=== PATIENT | female | born 1980 | race Caucasian/White ===

== ENCOUNTER 2017-04-10 02:59 | Emergency (ER) | payer MEDICAID ==
[~2017-04-10] VITALS: Ht 157.5 cm; Wt 45.9 kg
[2017-04-10] MEDS ORDERED: TRAM50TA2 PO (03:39)
[2017-04-10 04:02] VITALS: BP 142/85
== END 2017-04-10 04:06 | disposition home or self-care (01) ==
LOC: ER 03:00
DX: D17.21 Benign lipomatous neoplasm of skin and subcutaneous tissue of right arm (principal); Z56.0 Unemployment, unspecified; Z79.899 Other long term (current) drug therapy
CPT/HCPCS: 99283

== ENCOUNTER 2018-10-18 18:05 | Emergency (ER) | payer MEDICAID ==
[~2018-10-18] VITALS: Ht 157.5 cm; Wt 45.9 kg
[2018-10-18 18:08] VITALS: BP 129/83
[2018-10-18] MEDS ORDERED: ketorolac trometh inj. 60 MG/2 ML VIAL IM ONE (18:20)
[2018-10-18] MEDS ORDERED: dexamethasone sod phosphate 10mg/ml inj IM STA (18:20)
[2018-10-18] MEDS ORDERED: GABA300C PO (18:21)
== END 2018-10-18 18:34 | disposition home or self-care (01) ==
LOC: ER 18:06
DX: G62.9 Polyneuropathy, unspecified (principal); F32.9 Major depressive disorder, single episode, unspecified; Z98.890 Other specified postprocedural states; Z56.0 Unemployment, unspecified; Z79.899 Other long term (current) drug therapy
CPT/HCPCS: 96372; 99283; J1100; J1885

== ENCOUNTER 2019-05-07 14:19 | Emergency (ER) | payer MEDICAID ==
[~2019-05-07] VITALS: Ht 157.5 cm; Wt 50.8 kg
[~2019-05-07 14:19] MED LIST: GABA300C PO
[2019-05-07 14:39] VITALS: BP 120/35
[2019-05-07] MEDS ORDERED: proparacaine 0.5% ophthalmic drops 15ml EACHEYE ONE (15:05)
[2019-05-07] MEDS ORDERED: CIPR2.5D18 LEFTEYE (15:48)
== END 2019-05-07 16:11 | disposition home or self-care (01) ==
LOC: ER 14:23
DX: H16.002 Unspecified corneal ulcer, left eye (principal); Z56.0 Unemployment, unspecified; Z98.890 Other specified postprocedural states
CPT/HCPCS: 99283

== ENCOUNTER 2020-06-20 08:54 | Emergency (ER) | payer MEDICAID ==
[~2020-06-20] VITALS: Ht 167.6 cm; Wt 100.0 kg
[2020-06-20 09:10] VITALS: BP 125/86
== END 2020-06-20 09:41 | disposition home or self-care (01) ==
LOC: ER 08:55
DX: S06.0X0A Concussion without loss of consciousness, initial encounter (principal); F32.9 Major depressive disorder, single episode, unspecified; Z98.890 Other specified postprocedural states; Z56.0 Unemployment, unspecified; X58.XXXA Exposure to other specified factors, initial encounter; Y93.89 Activity, other specified; Y92.89 Other specified places as the place of occurrence of the external cause; Y99.8 Other external cause status
CPT/HCPCS: 99281

== ENCOUNTER → 2020-08-23 | Day surgery (SDC) | payer MEDICAID ==
[2020-08-17 10:15] LABS: CLARITY,URINE SLIGHTLY CLOUDY (Clear); COLOR,URINE YELLOW (Yellow); GLUCOSE, URINE NEGATIVE (Neg); KETONES,URINE NEGATIVE (Neg); LEUKOCYTE ESTERASE ,URINE TRACE (Neg); NITRITES, URINE NEGATIVE (Neg); OCCULT BLOOD,URINE NEGATIVE (Neg); PROTEIN,URINE NEGATIVE (Neg)
[2020-08-17 10:20] LABS: UA COLLECTION TYPE CLN CATCH MIDSTREAM
[2020-08-17 10:23] LABS: BASOPHILS # (AUTO) 0.1 X10'3 (0-0.2); EOSINOPHILS # (AUTO) 0.1 X10'3 (0-0.9); EOSINOPHILS % (AUTO) 1.3 % (0-6); LYMPHOCYTES # (AUTO) 1.4 X10'3 (1.1-4.8); MEAN PLATELET VOLUME 8.5 FL (7.4-10.4); PRE OP HEMOGLOBIN 13.6 g/dL (12.0-16.0); RED CELL DISTRIBUTION WIDTH 13.3 % (11.5-14.5)
[2020-08-17 10:25] LABS: BASOPHILS % (AUTO) 1.3 % (0-1); LYMPHOCYTES % (AUTO) 29.8 % (21-51); MEAN CORPUSCULAR HEMOGLOBIN 27.9 PG (27.0-31.0); MEAN CORPUSCULAR HGB CONC 33.6 g/dL (33.0-36.5); MONOCYTES # (AUTO) 0.5 X10'3 (0-0.9); MONOCYTES % (AUTO) 11.3 % (2-12); NEUTROPHILS # (AUTO) 2.7 X10'3 (1.8-7.7); NEUTROPHILS % (AUTO) 56.3 % (42-75); PRE OP HEMATOCRIT 40.5 % (35.0-45.0); PRE OP PLATELET COUNT 180 X10'3 (140-440); RED BLOOD COUNT 4.89 X10'6 (4.20-5.60)
[2020-08-17 10:26] LABS: BACTERIA,URINE 1+ /HPF (Neg); MUCUS STRANDS MANY /LPF (Neg); RBC,URINE 0-2 /HPF (0-2); SQUAMOUS EPITHELIAL CELL,UR MANY /LPF (FEW); YEAST FEW /HPF (NEGATIVE)
[2020-08-17 10:29] LABS: HCG SERUM QL NEGATIVE
[2020-08-17 10:42] LABS: ALBUMIN 3.8 G/DL (3.4-5.0); ALBUMIN/GLOBULIN RATIO 1.1 (1.1-1.5); ALKALINE PHOSPHATASE 57 IU/L (46-116); BLOOD UREA NITROGEN 12 MG/DL (7-18); BUN/CREATININE RATIO 15.4 (6.6-38.0); CALCIUM 8.7 MG/DL (8.5-10.1); CHLORIDE 106 MMOL/L (99-107); CREATININE 0.78 MG/DL (0.40-0.90); PRE OP ALT 16 U/L (30-65); PRE OP ANION GAP 9 (8-16); PRE OP AST 18 U/L (10-37); PRE OP BILIRUB, TOTAL 1.2 MG/DL (0.0-1.0); PRE OP GLUCOSE 89 MG/DL (70-104); PRE OP SODIUM 141 MMOL/L (135-145); TOTAL PROTEIN 7.3 G/DL (6.4-8.2); eGFR 82 ML/MIN
[2020-08-17 10:50] LABS: LARGE PLATELETS FEW; MICROCYTOSIS 1+; PLATELET ESTIMATE NORMAL
[2020-08-23] VITALS (11 sets, daily range): BP systolic 102–128; BP diastolic 64–82
[~2020-08-23] VITALS: Ht 157.5 cm; Wt 46.0 kg
[~2020-08-23] MED LIST changes: -GABA300C PO; +HYDROcodone/acetaminophen 5mg/325mg tablet PO ONE; +LIDOcaine 2% (20mg/ml) 5ml vial ONE; +NORE-126 PO; +ceFOXitin 2GM-NS 100mL ADDvant 100 ML IV ONE; +dexamethasone sod phosphate 4mg/ml inj. ONE; +famotidine 20mg tablet PO ONE; +fentaNYL/PF 50MCG/1 ML 2ML syringe ONE; +meperidine/PF 25mg/ml syringe IV PRN; +meperidine/PF 25mg/ml syringe ONE; +midazolam 1 mg/ML 2ml injection ONE; +morphine 2 MG/ML inj. syringe IV PRN; +morphine 4 MG/ML inj SYRINge IV PRN; +ondansetron/PF 4mg/2ml inj IV PRN; +ondansetron/PF 4mg/2ml inj ONE; +proCHLORperazine 10 MG/2 ml inj IV PRN; +propofol inj 20 ML IV ONE; +ringers solution, lacted 1,000 ML IV SCH; +sevoflurane 250ml liquid IH ONE
--- NOTE | 2020-08-23 16:08 | NUR ---
PT AROUSABLE TO NAME VSS NO DISTRESS CONT TO MONITOR Addendum: 08/23/20 at 1639 by Delia Rincon RN Amended: Links added.
--- NOTE | 2020-08-23 17:30 | NUR ---
PT AWAKE ALERT JOSE ALFREDO PO'S STATES ABD PAIN BETTER. VSS MEETS CRITERIA TO DC HOME DC INSTR GIVEN NO CONCERNS WC OUT TO CAR Addendum: 08/23/20 at 1824 by Delia Rincon RN Amended: Links added.
--- NOTE | 2020-08-23 17:35 | NUR ---
PT MORE AWAKE CRYING STATE HAVING SEVERE PAIN TO ABD "CRAMPING", RR 28, MED WITH PAIN MEDICATION, CONT TO MONITOR
== END | disposition home or self-care (01) ==
LOC: PAS 13:57
PROVIDERS: ATTEND Obstetrics & Gynecology Obstetrics
DX: N92.1 Excessive and frequent menstruation with irregular cycle (principal); F32.9 Major depressive disorder, single episode, unspecified; G43.909 Migraine, unspecified, not intractable, without status migrainosus; Z79.899 Other long term (current) drug therapy; Z98.51 Tubal ligation status; Z98.890 Other specified postprocedural states; Z83.3 Family history of diabetes mellitus; Z80.41 Family history of malignant neoplasm of ovary
CPT/HCPCS: 36415; 58563; 71046; 80053; 81001; 82948; 84703; 85025; 86885; 86900; 86901; 93005; J0694; J1100; J2001; J2175; J2250; J2270; J2405; J2704; J3010; J7030; 85008; A4355; A4618; A4649; A6258; A7000; J7120

== ENCOUNTER 2020-10-19 09:34 | Emergency (ER) | payer MEDICAID ==
[~2020-10-19] VITALS: Ht 157.5 cm; Wt 47.4 kg
[~2020-10-19 09:34] MED LIST changes: -HYDROcodone/acetaminophen 5mg/325mg tablet PO ONE; -LIDOcaine 2% (20mg/ml) 5ml vial ONE; -ceFOXitin 2GM-NS 100mL ADDvant 100 ML IV ONE; -dexamethasone sod phosphate 4mg/ml inj. ONE; -famotidine 20mg tablet PO ONE; -fentaNYL/PF 50MCG/1 ML 2ML syringe ONE; -meperidine/PF 25mg/ml syringe IV PRN; -meperidine/PF 25mg/ml syringe ONE; -midazolam 1 mg/ML 2ml injection ONE; -morphine 2 MG/ML inj. syringe IV PRN; -morphine 4 MG/ML inj SYRINge IV PRN; -ondansetron/PF 4mg/2ml inj IV PRN; -ondansetron/PF 4mg/2ml inj ONE; -proCHLORperazine 10 MG/2 ml inj IV PRN; -propofol inj 20 ML IV ONE; -ringers solution, lacted 1,000 ML IV SCH; -sevoflurane 250ml liquid IH ONE
[2020-10-19 09:49] VITALS: BP 114/84
[2020-10-19] MEDS ORDERED: proparacaine 0.5% ophthalmic drops 15ml RIGHTEYE ONE (09:55)
[2020-10-19] MEDS ORDERED: erythromycin ophthalmic ointment 1gm tube RIGHTEYE ONE (09:55)
[2020-10-19] MEDS ORDERED: tetanus & diphtheria toxoid (Td) vaccine 0.5ml IMVAC ONE (10:10)
[2020-10-19] MEDS ORDERED: ERYT1OIN6 RIGHTEYE (10:14)
[2020-10-19] MEDS ORDERED: TETanus/Pertussis (Acell)/Diphther VAC/PF (Tdap-Adult) 0.5ml syringe IMVAC ONE (10:15)
== END 2020-10-19 10:49 | disposition home or self-care (01) ==
LOC: ER 09:34
DX: S05.01XA Injury of conjunctiva and corneal abrasion without foreign body, right eye, initial encounter (principal); Z98.890 Other specified postprocedural states; Z56.0 Unemployment, unspecified; Z79.899 Other long term (current) drug therapy; Z20.3 Contact with and (suspected) exposure to rabies; X58.XXXA Exposure to other specified factors, initial encounter; Y93.89 Activity, other specified; Y92.89 Other specified places as the place of occurrence of the external cause; Y99.8 Other external cause status
CPT/HCPCS: 90471; 90715; 99283

== ENCOUNTER 2021-01-02 15:44 | Emergency (ER) | payer MEDICAID ==
[~2021-01-02] VITALS: Ht 157.5 cm; Wt 46.4 kg
[2021-01-02 16:07] VITALS: BP 125/91
[2021-01-02] MEDS ORDERED: LORazepam 1 MG tablet PO ONE (16:30)
[2021-01-02 17:17] LABS: BASOPHILS # (AUTO) 0.1 X10'3 (0-0.2); BASOPHILS % (AUTO) 1.3 % (0-1); EOSINOPHILS # (AUTO) 0.1 X10'3 (0-0.9); EOSINOPHILS % (AUTO) 1.1 % (0-6); HEMATOCRIT 39.5 % (35.0-45.0); HEMOGLOBIN 13.7 g/dl (12.0-16.0); LYMPHOCYTES # (AUTO) 1.5 X10'3 (1.1-4.8); LYMPHOCYTES % (AUTO) 31.4 % (21-51); MEAN CORPUSCULAR HEMOGLOBIN 28.7 PG (27.0-31.0); MEAN CORPUSCULAR HGB CONC 34.7 g/dL (33.0-36.5); MEAN CORPUSCULAR VOLUME 82.8 FL (78-98); MEAN PLATELET VOLUME 7.7 FL (7.4-10.4); MONOCYTES # (AUTO) 0.4 X10'3 (0-0.9); MONOCYTES % (AUTO) 7.7 % (2-12); NEUTROPHILS # (AUTO) 2.8 X10'3 (1.8-7.7); NEUTROPHILS % (AUTO) 58.5 % (42-75); PLATELET COUNT 250 X10'3 (140-440); RED BLOOD COUNT 4.77 X10'6 (4.20-5.60); RED CELL DISTRIBUTION WIDTH 13.3 % (11.5-14.5); WHITE BLOOD COUNT 4.7 X10'3 (4.5-11.0)
[2021-01-02 17:31] LABS: ALANINE AMINOTRANSFERASE 21 U/L (12-78); ALBUMIN 4.3 G/DL (3.4-5.0); ALBUMIN/GLOBULIN RATIO 1.3 (1.1-1.5); ALKALINE PHOSPHATASE 57 IU/L (46-116); ANION GAP 10 (8-16); ASPARTATE AMINO TRANSFERASE 17 U/L (10-37); BILIRUBIN,TOTAL 0.6 MG/DL (0.1-1.0); BLOOD UREA NITROGEN 12 MG/DL (7-18); BUN/CREATININE RATIO 12.9 (6.6-38.0); CALCIUM 8.9 MG/DL (8.5-10.1); CHLORIDE 106 MMOL/L (99-107); CREATININE 0.93 MG/DL (0.40-0.90); GLUCOSE 136 MG/DL (70-104); MAGNESIUM 2.1 MG/DL (1.5-2.4); POTASSIUM 3.7 MMOL/L (3.5-5.1); SODIUM 144 MMOL/L (135-145); TOTAL CARBON DIOXIDE 28.5 MMOL/L (24-32); TOTAL PROTEIN 7.7 G/DL (6.4-8.2); eGFR 67 ML/MIN
[2021-01-02] MEDS ORDERED: HYDR-3686 PO (17:43)
== END 2021-01-02 18:15 | disposition home or self-care (01) ==
LOC: ER 15:45
DX: R07.89 Other chest pain (principal); F41.9 Anxiety disorder, unspecified; R06.02 Shortness of breath; R00.2 Palpitations; F32.9 Major depressive disorder, single episode, unspecified; Z98.890 Other specified postprocedural states; Z56.0 Unemployment, unspecified; Z79.899 Other long term (current) drug therapy
CPT/HCPCS: 36415; 71045; 80053; 83735; 84484; 85025; 93005; 99285

== ENCOUNTER 2021-04-05 08:34 | Outpatient (CLI) | payer MEDICAID ==
[2021-04-05 09:07] LABS: ABG HCO3 22.6 mmol/L (22.0-26.0); ABG OXYGEN SATURATION 97.9 % (94-97); ABG PCO2 (T) 34.5 mmHg (32.0-45.0); ABG PO2 (T) 104.8 mmHg (75.0-100.0); ALLEN'S TEST POSITIVE; FCOHb 0.5 % (0.0-3.9); FMetHb 0.1 % (0.0-1.5); FO2Hb 97.3 % (94-97); TOTAL HEMOGLOBIN 13.8 G/dl (12.0-16.0)
== END 2021-04-05 23:59 | disposition home or self-care (01) ==
LOC: RT 08:34
PROVIDERS: ATTEND Nurse Practitioner Adult Health
DX: R06.02 Shortness of breath (principal); R07.89 Other chest pain; Z79.899 Other long term (current) drug therapy
CPT/HCPCS: 36600; 82803; 85018; 94010; 94727; 94729

== ENCOUNTER 2021-04-19 16:44 | Emergency (ER) | payer MEDICAID ==
[~2021-04-19] VITALS: Ht 157.5 cm; Wt 48.6 kg
[2021-04-19] MEDS ORDERED: ketorolac trometh. 30mg/ml inj. IM ONE (20:35)
[2021-04-19 21:24] VITALS: BP 111/66
== END 2021-04-19 21:32 | disposition home or self-care (01) ==
LOC: ER 16:45
DX: M79.675 Pain in left toe(s) (principal); M79.89 Other specified soft tissue disorders; X58.XXXA Exposure to other specified factors, initial encounter; Y93.89 Activity, other specified; Y92.89 Other specified places as the place of occurrence of the external cause; Y99.8 Other external cause status
CPT/HCPCS: 73630; 96372; 99283; J1885

== ENCOUNTER 2022-01-24 10:28 | Day surgery (SDC) | payer MEDICAID ==
[~2022-01-24] VITALS: Ht 157.5 cm; Wt 50.0 kg
[2022-01-24 10:37] VITALS: BP 119/76
[2022-01-24] MEDS ORDERED: HYDR-3686 PO (10:52)
[2022-01-24] MEDS ORDERED: TIZA-189 PO (10:53)
[2022-01-24] MEDS ORDERED: METO-395 PO (10:54)
[2022-01-24] MEDS ORDERED: FENTANYL CITRATE/PF 50 MCG/1 ML VIAL ONE (11:15)
[2022-01-24] MEDS ORDERED: LIDOcaine Viscous 15ml cup ONE (11:16)
[2022-01-24] MEDS ORDERED: diphenhydrAMINE 50 mg/ml inj ONE (11:16)
[2022-01-24] MEDS ORDERED: MIDAZolam 1 MG/ML 5ML VIAL ONE (11:16)
[2022-01-24 11:56] VITALS: BP 113/76
[2022-01-24 12:06] VITALS: BP 105/70
[2022-01-24 12:16] VITALS: BP 105/69
[2022-01-24 12:26] VITALS: BP 101/76
== END 2022-01-24 12:30 | disposition home or self-care (01) ==
LOC: GI LAB 10:28
PROVIDERS: ATTEND Internal Medicine Gastroenterology
DX: K44.9 Diaphragmatic hernia without obstruction or gangrene (principal); K29.50 Unspecified chronic gastritis without bleeding; B96.81 Helicobacter pylori [H. pylori] as the cause of diseases classified elsewhere; K21.9 Gastro-esophageal reflux disease without esophagitis
CPT/HCPCS: 43239; J2250; J3010; J7030; Z7512; 99152; A4620; J1200

== ENCOUNTER 2024-01-16 18:49 | Emergency (ER) | payer MEDICAID ==
[~2024-01-16] VITALS: Ht 157.5 cm; Wt 51.8 kg
[~2024-01-16 18:49] MED LIST changes: +HYDR-3686 PO; +METO-395 PO; -NORE-126 PO; +TIZA-189 PO
[2024-01-16 19:31] LABS: BASOPHILS % (AUTO) 0.3 % (0-1); EOSINOPHILS # (AUTO) 0.2 X10'3 (0-0.9); EOSINOPHILS % (AUTO) 3.1 % (0-6); HEMATOCRIT 35.5 % (35.0-45.0); HEMOGLOBIN 12.3 g/dl (12.0-16.0); LYMPHOCYTES # (AUTO) 1.1 X10'3 (1.1-4.8); LYMPHOCYTES % (AUTO) 15.2 % (21-51); MEAN CORPUSCULAR HEMOGLOBIN 29.3 PG (27.0-31.0); MEAN CORPUSCULAR HGB CONC 34.5 g/dL (33.0-36.5); MEAN CORPUSCULAR VOLUME 84.9 FL (78-98); MEAN PLATELET VOLUME 8.8 FL (7.4-10.4); MONOCYTES # (AUTO) 0.8 X10'3 (0-0.9); MONOCYTES % (AUTO) 10.6 % (2-12); NEUTROPHILS # (AUTO) 5.2 X10'3 (1.8-7.7); NEUTROPHILS % (AUTO) 70.8 % (42-75); PLATELET COUNT 230 X10'3 (140-440); RED BLOOD COUNT 4.18 X10'6 (4.20-5.60); RED CELL DISTRIBUTION WIDTH 11.9 % (11.5-14.5); WHITE BLOOD COUNT 7.3 X10'3 (4.5-11.0)
[2024-01-16 19:44] LABS: HCG SERUM QL NEGATIVE
[2024-01-16 19:51] LABS: ALANINE AMINOTRANSFERASE 178 U/L (12-78); ALBUMIN 2.9 G/DL (3.4-5.0); ALBUMIN/GLOBULIN RATIO 0.9 (1.1-1.5); ALKALINE PHOSPHATASE 84 IU/L (46-116); ANION GAP 6 (8-16); ASPARTATE AMINO TRANSFERASE 40 U/L (10-37); BILIRUBIN,TOTAL 0.5 MG/DL (0.1-1.0); BLOOD UREA NITROGEN 5 MG/DL (7-18); BUN/CREATININE RATIO 6.3 (10.0-20.0); CALCIUM 7.9 MG/DL (8.5-10.1); CHLORIDE 103 MMOL/L (99-107); CREATININE 0.79 MG/DL (0.40-0.90); GLUCOSE 97 MG/DL (70-104); LIPASE 45 U/L (16-77); SODIUM 141 MMOL/L (135-145); TOTAL CARBON DIOXIDE 31.6 MMOL/L (24-32); TOTAL PROTEIN 6.2 G/DL (6.4-8.2); eCRCL 73 ML/MIN; eGFR 79 ML/MIN
[2024-01-16] MEDS ORDERED: iohexol 350MG/ML 100ml bottle IV ONE (19:58)
[2024-01-16] MEDS: ondansetron/PF 4mg/2ml inj IV ONE (20:12)
[2024-01-16] MEDS: HYDROmorphone 1 mg/ml syringe IV ONE (20:14)
[2024-01-16 20:34] LABS: BILIRUBIN,URINE NEGATIVE (Neg); CLARITY,URINE SLIGHTLY CLOUDY (Clear); COLOR,URINE YELLOW (Yellow); GLUCOSE, URINE NEGATIVE (Neg); KETONES,URINE TRACE mg/dl (Neg); LEUKOCYTE ESTERASE ,URINE NEGATIVE (Neg); NITRITES, URINE NEGATIVE (Neg); OCCULT BLOOD,URINE MODERATE (Neg); PROTEIN,URINE NEGATIVE (Neg)
[2024-01-16 20:35] LABS: URINE HCG NEGATIVE (NEG)
[2024-01-16 20:39] LABS: UA COLLECTION TYPE NON-SPECIFIED
[2024-01-16 20:41] LABS: RBC,URINE 20-50 /HPF (0-2); SQUAMOUS EPITHELIAL CELL,UR FEW /LPF (FEW)
[2024-01-16 20:42] LABS: BACTERIA,URINE NONE SEEN /HPF (Neg); MUCUS STRANDS FEW /LPF (Neg); WBC,URINE 0-4 /HPF (0-4)
[2024-01-16 20:43] LABS: TRANSITIONAL EPI CELLS,URINE FEW /HPF
[2024-01-16 20:48] LABS: URINE AMPHETAMINE SCREEN POSITIVE (Neg); URINE BARBITUATE SCREEN NEGATIVE (Neg); URINE BENZODIAZEPINES SCREEN NEGATIVE (Neg); URINE CANNABINOID SCREEN NEGATIVE (Neg); URINE COCAINE SCREEN NEGATIVE (Neg); URINE METHADONE SCREEN NEGATIVE (Neg); URINE OPIATE SCREEN POSITIVE (Neg); URINE PHENCYCLIDINE SCREEN NEGATIVE (Neg)
[2024-01-16] MEDS: potassium Cl 20 mEq SR tablet PO STA (22:58)
[2024-01-16] MEDS: furosemide 10 MG/1 ML 10ml inj IV ONE (23:03)
[2024-01-16 23:05] VITALS: BP 118/68; PULSE 98; RESP 15; TEMP 98.8; O2SAT 100
== END 2024-01-16 23:39 | disposition home or self-care (01) ==
LOC: ER 18:50
DX: J90 Pleural effusion, not elsewhere classified (principal); R10.84 Generalized abdominal pain; R11.10 Vomiting, unspecified; R13.10 Dysphagia, unspecified
CPT/HCPCS: 36415; 71045; 74177; 80053; 80305; 81001; 81025; 83690; 84703; 85025; 96374; 96375; 99285; J1171; J1940; J2405; Q9967; C1758

== ENCOUNTER 2024-01-18 02:33 | Emergency (ER) | payer MEDICAID ==
[~2024-01-18] VITALS: Ht 157.5 cm; Wt 55.1 kg
[2024-01-18 05:45] LABS: BASOPHILS # (AUTO) 0.1 X10'3 (0-0.2); EOSINOPHILS # (AUTO) 0.2 X10'3 (0-0.9); EOSINOPHILS % (AUTO) 2.7 % (0-6); WHITE BLOOD COUNT 7.9 X10'3 (4.5-11.0)
[2024-01-18 05:47] LABS: BASOPHILS % (AUTO) 0.8 % (0-1); HEMATOCRIT 36.2 % (35.0-45.0); HEMOGLOBIN 12.4 g/dl (12.0-16.0); LYMPHOCYTES # (AUTO) 1.5 X10'3 (1.1-4.8); LYMPHOCYTES % (AUTO) 18.4 % (21-51); MEAN CORPUSCULAR HEMOGLOBIN 29.5 PG (27.0-31.0); MEAN CORPUSCULAR HGB CONC 34.3 g/dL (33.0-36.5); MEAN CORPUSCULAR VOLUME 85.8 FL (78-98); MEAN PLATELET VOLUME 9.1 FL (7.4-10.4); MONOCYTES # (AUTO) 0.9 X10'3 (0-0.9); NEUTROPHILS # (AUTO) 5.3 X10'3 (1.8-7.7); NEUTROPHILS % (AUTO) 67.1 % (42-75); PLATELET COUNT 318 X10'3 (140-440); RED BLOOD COUNT 4.22 X10'6 (4.20-5.60); RED CELL DISTRIBUTION WIDTH 12.3 % (11.5-14.5)
[2024-01-18] MEDS ORDERED: POTA-207 PO (06:04)
[2024-01-18] MEDS ORDERED: FURO-150 PO (06:04)
[2024-01-18 06:16] LABS: ALANINE AMINOTRANSFERASE 162 U/L (12-78); ALBUMIN 3.5 G/DL (3.4-5.0); ALKALINE PHOSPHATASE 84 IU/L (46-116); ANION GAP 8 (8-16); ASPARTATE AMINO TRANSFERASE 38 U/L (10-37); BILIRUBIN,TOTAL 0.7 MG/DL (0.1-1.0); BLOOD UREA NITROGEN 6 MG/DL (7-18); BUN/CREATININE RATIO 8.5 (10.0-20.0); CALCIUM 8.5 MG/DL (8.5-10.1); CHLORIDE 101 MMOL/L (99-107); CREATININE 0.71 MG/DL (0.40-0.90); GLUCOSE 94 MG/DL (70-104); SODIUM 138 MMOL/L (135-145); TOTAL CARBON DIOXIDE 29.1 MMOL/L (24-32); TOTAL PROTEIN 7.1 G/DL (6.4-8.2); eCRCL 81 ML/MIN; eGFR 90 ML/MIN
[2024-01-18 06:23] LABS: PRO BRAIN NATRIURETIC PEPTIDE 231 PG/ML (0-125)
[2024-01-18] MEDS: magnesium oxide 400mg tablet PO ONE (07:11)
[2024-01-18] MEDS: potassium Cl 20 mEq SR tablet PO ONE (07:11)
[2024-01-18] MEDS: potassium Cl 20 mEq SR tablet PO STA (07:12)
[2024-01-18 07:21] VITALS: BP 129/84; PULSE 87; RESP 14; TEMP 97.6; O2SAT 98
== END 2024-01-18 07:25 | disposition home or self-care (01) ==
LOC: ER 02:34
DX: R60.0 Localized edema (principal); E87.6 Hypokalemia; Z88.8 Allergy status to other drugs, medicaments and biological substances; Z98.890 Other specified postprocedural states
CPT/HCPCS: 36415; 71045; 80053; 83735; 83880; 84145; 84484; 85025; 93005; 99285

== ENCOUNTER 2024-01-23 14:02 | Emergency (ER) | payer MEDICAID ==
[~2024-01-23] VITALS: Ht 157.5 cm; Wt 44.3 kg
[~2024-01-23 14:02] MED LIST changes: +FURO-150 PO; +POTA-207 PO
[2024-01-23 14:57] LABS: BASOPHILS # (AUTO) 0.1 X10'3 (0-0.2); BASOPHILS % (AUTO) 1.2 % (0-1); EOSINOPHILS # (AUTO) 0.1 X10'3 (0-0.9); EOSINOPHILS % (AUTO) 0.7 % (0-6); HEMATOCRIT 46.8 % (35.0-45.0); HEMOGLOBIN 16.2 g/dl (12.0-16.0); LYMPHOCYTES # (AUTO) 2.1 X10'3 (1.1-4.8); LYMPHOCYTES % (AUTO) 24.3 % (21-51); MEAN CORPUSCULAR HEMOGLOBIN 29.4 PG (27.0-31.0); MEAN CORPUSCULAR HGB CONC 34.6 g/dL (33.0-36.5); MEAN CORPUSCULAR VOLUME 85.1 FL (78-98); MEAN PLATELET VOLUME 8.6 FL (7.4-10.4); MONOCYTES % (AUTO) 11.4 % (2-12); NEUTROPHILS # (AUTO) 5.4 X10'3 (1.8-7.7); NEUTROPHILS % (AUTO) 62.4 % (42-75); PLATELET COUNT 498 X10'3 (140-440); RED CELL DISTRIBUTION WIDTH 11.9 % (11.5-14.5); WHITE BLOOD COUNT 8.6 X10'3 (4.5-11.0)
[2024-01-23 15:09] LABS: ALBUMIN 4.3 G/DL (3.4-5.0); ANION GAP 14 (8-16); BLOOD UREA NITROGEN 17 MG/DL (7-18); BUN/CREATININE RATIO 18.1 (10.0-20.0); CALCIUM 9.4 MG/DL (8.5-10.1); CHLORIDE 97 MMOL/L (99-107); CREATININE 0.94 MG/DL (0.40-0.90); GLUCOSE 100 MG/DL (70-104); POTASSIUM 4.1 MMOL/L (3.5-5.1); SODIUM 140 MMOL/L (135-145); TOTAL CARBON DIOXIDE 28.7 MMOL/L (24-32); eCRCL 54 ML/MIN; eGFR 65 ML/MIN
[2024-01-23 15:24] LABS: BILIRUBIN,URINE MODERATE (Neg); CLARITY,URINE SLIGHTLY CLOUDY (Clear); COLOR,URINE YELLOW (Yellow); GLUCOSE, URINE NEGATIVE (Neg); KETONES,URINE 40 mg/dl (Neg); LEUKOCYTE ESTERASE ,URINE NEGATIVE (Neg); NITRITES, URINE NEGATIVE (Neg); OCCULT BLOOD,URINE LARGE (Neg); PH,URINE 5.5 (4.8-8.0); PROTEIN,URINE 100 mg/dl (Neg); UROBILINOGEN,URINE 0.2 E.U/dL (0.2-1.0)
[2024-01-23 15:32] LABS: UA COLLECTION TYPE CLN CATCH MIDSTREAM
[2024-01-23 15:35] LABS: BACTERIA,URINE 3+ /HPF (Neg); MUCUS STRANDS FEW /LPF (Neg); RBC,URINE 20-50 /HPF (0-2); SQUAMOUS EPITHELIAL CELL,UR MANY /LPF (FEW)
[2024-01-23] MEDS: proCHLORperazine 10 MG/2 ml inj IV ONE (15:58)
[2024-01-23] MEDS: pantoprazole 40 MG vial IV ONE (15:58)
[2024-01-23] MEDS: normal saline 1000ML IV soln IVB ONE (15:58)
[2024-01-23] MEDS ORDERED: iohexol 300mg/ml 100ml inj. ONE (17:10)
[2024-01-23] MEDS ORDERED: PROC25SU31 RC (17:55)
[2024-01-23 19:36] VITALS: BP 98/72; PULSE 98; RESP 16; TEMP 98.3; O2SAT 99
== END 2024-01-23 19:39 | disposition home or self-care (01) ==
LOC: ER 14:02
DX: R11.2 Nausea with vomiting, unspecified (principal); E86.0 Dehydration; F41.9 Anxiety disorder, unspecified; F32.A Depression, unspecified; F15.10 Other stimulant abuse, uncomplicated; Z56.0 Unemployment, unspecified; Z98.890 Other specified postprocedural states; Z79.899 Other long term (current) drug therapy
CPT/HCPCS: 36415; 71045; 74018; 74177; 80048; 81001; 83605; 84145; 85025; 87040; 96374; 96375; 99285; J0780; J2470; J7030; Q9967